=== PATIENT | female | born 1990 | race African-American/Black ===

== ENCOUNTER 2017-08-25 09:17 | Inpatient (IN) | payer OTHER ==
[~2017-08-25] VITALS: Ht 167.6 cm; Wt 72.1 kg
[2017-08-25 10:38] LABS: BASO % 0.4 % (0.0-1.0); EOS # 0.3 10*3/uL (0.0-0.4); EOS % 5.6 % (1.0-4.0); HEMATOCRIT 34.5 % (37.0-47.0); HEMOGLOBIN 11.2 g/dl (12.0-16.0); LYMPH # 2.4 10*3/uL (1.3-4.4); LYMPH % 43.6 % (27.0-41.0); MEAN CELL VOLUME 83.9 fl (81.0-99.0); MEAN CORPUSCULAR HGB 27.3 pg (27.0-31.0); MEAN CORPUSCULAR HGB CONC 32.5 g/dl (33.0-37.0); MEAN PLATELET VOLUME 10.2 fl (9.6-12.3); MONO # 0.5 10*3/uL (0.1-1.0); MONO % 8.6 % (3.0-9.0); NEUT # 2.3 10*3/uL (2.3-7.9); NEUT % 41.6 % (47.0-73.0); PLATELET COUNT AUTOMATED 261 10*3/uL (130-400); RED BLOOD COUNT 4.11 10*6/uL (4.10-5.10); RED CELL DISTRI WIDTH 15.1 % (0-14.5); WHITE BLOOD COUNT 5.6 10*3/uL (4.8-10.8)
[2017-08-25 10:53] LABS: ALBUMIN 3.4 gm/dl (3.1-4.5); ALKALINE PHOSPHATASE 75 U/L (45-117); BUN 8 mg/dl (7-24); CHLORIDE 107 mmol/L (98-107); CREATININE 0.72 mg/dL (0.55-1.02); SGOT/AST 15 IU/L (3-35); SGPT/ALT 23 U/L (12-78); SODIUM 143 mmol/L (136-145); TOTAL PROTEIN 7.2 gm/dL (6.4-8.2)
[2017-08-25 10:55] LABS: ETHYL ALCOHOL < 3.0 mg/dl (<3); POTASSIUM 3.5 mmol/L (3.5-5.1)
[2017-08-25 12:00] VITALS: BP 126/79
[2017-08-25 16:00] VITALS: BP 131/84
[2017-08-25 16:34] LABS: BILIRUBIN NEGATIVE (NEGATIVE); BLOOD NEGATIVE (NEGATIVE); CLARITY SL CLOUDY (CLEAR); COLOR YELLOW (YELLOW); GLUCOSE NEGATIVE (NEGATIVE); KETONE TRACE (NEGATIVE); LEUKO ESTERASE NEGATIVE (NEGATIVE); NITRITE NEGATIVE (NEGATIVE); SPECIFIC GRAVITY 1.025 (1.005-1.030); UROBILINOGEN 0.2 E.U./dl (0.2-1.0)
[2017-08-25 16:40] LABS: MUCOUS 1+; RBC 0-2 rbc/hpf (0-2)
[2017-08-25 16:41] LABS: BACTERIA TRACE
[2017-08-25 16:44] LABS: URINE AMPHETAMINES < 1000 (1000ng/ml); URINE BARBITURATES < 200 (200ng/ml); URINE BENZODIAZEPINES < 200 (200ng/ml); URINE CANNABINOIDS (THC) > 50 (50ng/ml); URINE COCAINE > 300 (300ng/ml); URINE METHADONE < 300 (300ng/ml); URINE OPIATES > 300 (300ng/ml)
[2017-08-25 16:48] LABS: URINE PHENCYCLIDINE < 25 (25ng/ml)
[2017-08-25 21:08] VITALS: BP 130/84
[2017-08-26 00:58] VITALS: BP 125/85
[2017-08-26 08:00] VITALS: BP 127/88
[2017-08-26 16:00] VITALS: BP 124/74
[2017-08-26 20:00] VITALS: BP 136/72
[2017-08-27 00:01] VITALS: BP 116/82
[2017-08-27 08:00] VITALS: BP 119/72
[2017-08-27 16:00] VITALS: BP 122/77
[2017-08-27 20:00] VITALS: BP 128/81
[2017-08-28 00:24] VITALS: BP 113/81
[2017-08-28 06:23] LABS: BASO % 0.3 % (0.0-1.0); EOS # 0.2 10*3/uL (0.0-0.4); EOS % 2.8 % (1.0-4.0); HEMATOCRIT 39.1 % (37.0-47.0); HEMOGLOBIN 12.5 g/dl (12.0-16.0); LYMPH # 2.6 10*3/uL (1.3-4.4); LYMPH % 44.6 % (27.0-41.0); MEAN CELL VOLUME 83.4 fl (81.0-99.0); MEAN CORPUSCULAR HGB 26.7 pg (27.0-31.0); MEAN PLATELET VOLUME 10.6 fl (9.6-12.3); MONO # 0.5 10*3/uL (0.1-1.0); MONO % 8.4 % (3.0-9.0); NEUT # 2.5 10*3/uL (2.3-7.9); NEUT % 43.7 % (47.0-73.0); PLATELET COUNT AUTOMATED 299 10*3/uL (130-400); RED BLOOD COUNT 4.69 10*6/uL (4.10-5.10); RED CELL DISTRI WIDTH 14.7 % (0-14.5); WHITE BLOOD COUNT 5.7 10*3/uL (4.8-10.8)
[2017-08-28 08:00] VITALS: BP 94/45
[2017-08-28] MEDS ORDERED: TRAZODONE50 MG PO (08:09)
== END 2017-08-28 09:05 | disposition home or self-care (01) | DRG 897 ==
LOC: LAB 09:17 → EDSTATUS 09:18 → 4E 09:18
PROVIDERS: Emergency Medicine; Student in an Organized Health Care Education/Training Program
DX: F11.23 Opioid dependence with withdrawal (principal); D70.9 Neutropenia, unspecified; D64.9 Anemia, unspecified; F41.9 Anxiety disorder, unspecified; F12.10 Cannabis abuse, uncomplicated; F17.210 Nicotine dependence, cigarettes, uncomplicated; Z71.6 Tobacco abuse counseling; Z98.891 History of uterine scar from previous surgery